=== PATIENT | female | born 1975 | race Caucasian/White ===

== ENCOUNTER 2018-08-01 22:12 | Emergency (ER) | payer BC, OTHER ==
[2018-08-01] MEDS ORDERED: IBUPROFEN 600 MG TAB PO STA (22:42)
[2018-08-01] MEDS ORDERED: SODIUM CHLORIDE 0.9% 1,000 ML IV STA ×2 (22:42)
[2018-08-01] MEDS ORDERED: SODIUM CHLORIDE 0.9% 500 ML 500 ML IV STA (22:42)
[2018-08-01] MEDS ORDERED: ACETAMINOPHEN TAB 500 MG TAB PO STA (22:42)
[2018-08-01 23:16] LABS: Basophils % (A) 0 %; Eosinophils # (A) 0.1 k/uL (0-0.7); Eosinophils % (A) 1 %; HCT 37.8 % (34.0-46.0); HGB 12.2 gm/dL (11.4-16.0); Lymphocytes # (A) 1.3 k/uL (1.0-4.8); Lymphocytes % (A) 10 %; MCH 29.5 pg (25.0-35.0); MCHC 32.2 g/dL (31.0-37.0); MCV 91.6 fL (80.0-100.0); Mean Platelet Volume 6.7; Monocytes # (A) 0.6 k/uL (0-1.0); Monocytes % (A) 4 %; Neutrophils # (A) 10.9 k/uL (1.3-7.7); Neutrophils % (A) 83 %; Platelet Count 320 k/uL (150-450); RBC 4.12 m/uL (3.80-5.40); RDW 12.8 % (11.5-15.5); WBC 13.2 k/uL (3.8-10.6)
[2018-08-01 23:23] LABS: Appearance,Urine Cloudy (Clear); Bacteria,Urine Many /hpf; Bilirubin,Urine Negative (Negative); Blood,Urine Moderate (Negative); Color,Urine Yellow; Glucose,Urine (UA) Negative (Negative); Ketones,Urine Negative (Negative); Leukocyte Esterase,Urine Large (Negative); Mucus,Urine Rare /hpf; Nitrite,Urine Positive (Negative); Protein,Urine 1+ (Negative); RBC,Urine 18 /hpf (0-5); Specific Gravity,Urine 1.013 (1.001-1.035); Squamous Epithelial Cell,Urine 1 /hpf (0-4); Urobilinogen,Urine <2.0 mg/dL (<2.0); WBC,Urine >182 /hpf (0-5)
[2018-08-01 23:41] LABS: ALT 37 U/L (9-52); AST 30 U/L (14-36); African American GFR (CKD) >90 (>60 ml/min/1.73 sqM); Albumin 3.4 g/dL (3.5-5.0); Alkaline Phosphatase 143 U/L (38-126); Anion Gap 10 mmol/L; Blood Urea Nitrogen 11 mg/dL (7-17); Calcium 8.8 mg/dL (8.4-10.2); Carbon Dioxide 23 mmol/L (22-30); Chloride 104 mmol/L (98-107); Glucose 106 mg/dL (74-99); Magnesium 1.9 mg/dL (1.6-2.3); Phosphorus 3.7 mg/dL (2.5-4.5); Potassium 3.8 mmol/L (3.5-5.1); Sodium 137 mmol/L (137-145); Total Bilirubin 0.5 mg/dL (0.2-1.3); Total Protein 6.2 g/dL (6.3-8.2)
--- NOTE | 2018-08-02 00:48 | US ---
EXAM: US Abdomen Limited, Right Upper Quadrant CLINICAL HISTORY: ITS.REASON US Reason: Pain TECHNIQUE: Real-time ultrasound of the right upper quadrant with image documentation. COMPARISON: None FINDINGS: Liver: Measures 19.4 cm, enlarged. Normal echotexture and contour. No focal lesion. Portal vein: Patent with normal direction of flow. Gallbladder: Normal. No wall thickening or pericholecystic fluid. No stone or sludge. Negative sonographic Russell's sign. Biliary tree: No abnormal dilatation. Common bile duct measures 4.8 mm. Pancreas: Visualized portions are unremarkable. Right kidney: Measures 12.8 cm in length. No hydronephrosis or stone. No mass. Peritoneal space: Normal. No free fluid. IMPRESSION: 1. Hepatomegaly. 2. No acute abnormality.
--- NOTE | 2018-08-02 00:50 | XR ---
EXAM: XR Chest, 2 Views CLINICAL HISTORY: ITS.REASON XR Reason: fever TECHNIQUE: Frontal and lateral views of the chest. COMPARISON: None FINDINGS: Hardware: None. Lungs/pleura: Mild left basilar atelectasis. No focal consolidation. No pleural effusion or pneumothorax. Heart/mediastinum: Normal. No cardiomegaly. Soft tissues: Unremarkable. Bones: No acute fracture. Upper abdomen: Normal. IMPRESSION: No acute disease identified.
[2018-08-02] MEDS ORDERED: SODIUM CHLORIDE 0.9% 1,000 ML IV STA (00:51)
[2018-08-02] MEDS ORDERED: NITROFURANTOIN MONOHYD/M-CRYST 100 MG CAP PO STA (00:51)
--- NOTE | 2018-08-02 00:51 | ED ---
Fever HPI - General Chief Complaint: Fever Stated Complaint: Fever Neck Pain Time Seen by Provider: 08/01/18 22:40 Source: patient, RN notes reviewed, old records reviewed Mode of arrival: ambulatory Limitations: no limitations - History of Present Illness Initial Comments: This is a 42-year-old female the ER for evaluation. She presents today for eval uation regards to fever. States she is right upper quadrant pain right flank pain and fever that started yesterday, otherwise not generalized not feeling well. Please she may have the flu, denies body aches. I'll nausea no vomiting nausea worse after she eats. Denies any bowel or bladder issues. No vomiting. No travel history or sick contacts. MD Complaint: fever -: days(s) (2) Temperature Source: oral Associated Symptoms: chills, myalgias, nausea Treatments Prior to Arrival: none - Related Data Previous Rx's Medication Instructions Recorded Nitrofurantoin Monohyd/M-Cryst 100 mg PO Q12HR #28 cap 08/02/18 [Macrobid] Allergies Allergy/AdvReac Type Severity Reaction Status Date / Time No Known Allergies Allergy Verified 08/01/18 23:11 Review of Systems ROS Statement: Those systems with pertinent positive or pertinent negative responses have been documented in the HPI. ROS Other: All systems not noted in ROS Statement are negative. Past Medical History Past Medical History: No Reported History History of Any Multi-Drug Resistant Organisms: None Reported Past Surgical History: Uterine Ablation Additional Past Surgical History / Comment(s): facial tumor removed at age 12 Past Psychological History: No Psychological Hx Reported Smoking Status: Current every day smoker Past Alcohol Use History: Rare Past Drug Use History: None Reported General Exam Limitations: no limitations General appearance: alert, in no apparent distress Head exam: Present: atraumatic, normocephalic, normal inspection Eye exam: Present: normal appearance, PERRL, EOMI. Absent: scleral icterus, conjunctival injection, periorbital swelling ENT exam: Present: normal exam, mucous membranes moist Neck exam: Present: normal inspection. Absent: tenderness, meningismus, lymphadenopathy Respiratory exam: Present: normal lung sounds bilaterally. Absent: respiratory distress, wheezes, rales, rhonchi, stridor Cardiovascular Exam: Present: regular rate, normal rhythm, normal heart sounds. Absent: systolic murmur, diastolic murmur, rubs, gallop, clicks GI/Abdominal exam: Present: soft, tenderness (Right upper quadrant), normal bowel sounds. Absent: distended, guarding, rebound, rigid Extremities exam: Present: normal inspection, full ROM, normal capillary refill. Absent: tenderness, pedal edema, joint swelling, calf tenderness Back exam: Present: normal inspection Neurological exam: Present: alert, oriented X3, CN II-XII intact Psychiatric exam: Present: normal affect, normal mood Skin exam: Present: warm, dry, intact, normal color. Absent: rash Course Vital Signs 08/01/18 08/02/18 08/02/18 22:28 00:28 01:11 Temperature 98.9 F 100.3 F H Pulse Rate 100 99 94 Respiratory 20 18 16 Rate Blood Pressure 137/88 113/76 107/75 O2 Sat by Pulse 99 97 96 Oximetry 08/02/18 01:40 Temperature 98.3 F Pulse Rate 89 Respiratory 18 Rate Blood Pressure 113/81 O2 Sat by Pulse 95 Oximetry - Reevaluation(s) Reevaluation #1: Medical record is reviewed Patient's fevers well-controlled symptoms are improved Medical Decision Making - Medical Decision Making 0.1 female the ER for evaluation of fever. Patient does have urinary tract infection, IV antibiotics. Patient given IV fluid can be discharged home - Lab Data Result diagrams: 08/01/18 22:50 08/01/18 22:50 Lab Results 08/01/18 08/01/18 08/01/18 Range/Units 22:50 22:50 22:50 WBC 13.2 H (3.8-10.6) k/uL RBC 4.12 (3.80-5.40) m/uL Hgb 12.2 (11.4-16.0) gm/dL Hct 37.8 (34.0-46.0) % MCV 91.6 (80.0-100.0) fL MCH 29.5 (25.0-35.0) pg MCHC 32.2 (31.0-37.0) g/dL RDW 12.8 (11.5-15.5) % Plt Count 320 (150-450) k/uL Neutrophils % 83 % Lymphocytes % 10 % Monocytes % 4 % Eosinophils % 1 % Basophils % 0 % Neutrophils # 10.9 H (1.3-7.7) k/uL Lymphocytes # 1.3 (1.0-4.8) k/uL Monocytes # 0.6 (0-1.0) k/uL Eosinophils # 0.1 (0-0.7) k/uL Basophils # 0.0 (0-0.2) k/uL Sodium 137 (137-145) mmol/L Potassium 3.8 (3.5-5.1) mmol/L Chloride 104 (98-107) mmol/L Carbon Dioxide 23 (22-30) mmol/L Anion Gap 10 mmol/L BUN 11 (7-17) mg/dL Creatinine 0.73 (0.52-1.04) mg/dL Est GFR (CKD-EPI)AfAm >90 (>60 ml/min/1.73 sqM) Est GFR (CKD-EPI)NonAf >90 (>60 ml/min/1.73 sqM) Glucose 106 H (74-99) mg/dL Plasma Lactic Acid Gera 1.0 (0.7-2.0) mmol/L Calcium 8.8 (8.4-10.2) mg/dL Phosphorus 3.7 (2.5-4.5) mg/dL Magnesium 1.9 (1.6-2.3) mg/dL Total Bilirubin 0.5 (0.2-1.3) mg/dL AST 30 (14-36) U/L ALT 37 (9-52) U/L Alkaline Phosphatase 143 H (38-126) U/L Total Protein 6.2 L (6.3-8.2) g/dL Albumin 3.4 L (3.5-5.0) g/dL Urine Color Urine Appearance (Clear) Urine pH (5.0-8.0) Ur Specific [place] (1.001-1.035) Urine Protein (Negative) Urine Glucose (UA) (Negative) Urine Ketones (Negative) Urine Blood (Negative) Urine Nitrite (Negative) Urine Bilirubin (Negative) Urine Urobilinogen (<2.0) mg/dL Ur Leukocyte Esterase (Negative) Urine RBC (0-5) /hpf Urine WBC (0-5) /hpf Urine WBC Clumps (None) /hpf Ur Squamous Epith Cells (0-4) /hpf Urine Bacteria (None) /hpf Urine Mucus (None) /hpf Influenza Type A RNA (Not Detectd) Influenza Type B (PCR) (Not Detectd) 08/01/18 08/01/18 Range/Units 22:58 23:15 WBC (3.8-10.6) k/uL RBC (3.80-5.40) m/uL Hgb (11.4-16.0) gm/dL Hct (34.0-46.0) % MCV (80.0-100.0) fL MCH (25.0-35.0) pg MCHC (31.0-37.0) g/dL RDW (11.5-15.5) % Plt Count (150-450) k/uL Neutrophils % % Lymphocytes % % Monocytes % % Eosinophils % % Basophils % % Neutrophils # (1.3-7.7) k/uL Lymphocytes # (1.0-4.8) k/uL Monocytes # (0-1.0) k/uL Eosinophils # (0-0.7) k/uL Basophils # (0-0.2) k/uL Sodium (137-145) mmol/L Potassium (3.5-5.1) mmol/L Chloride (98-107) mmol/L Carbon Dioxide (22-30) mmol/L Anion Gap mmol/L BUN (7-17) mg/dL Creatinine (0.52-1.04) mg/dL Est GFR (CKD-EPI)AfAm (>60 ml/min/1.73 sqM) Est GFR (CKD-EPI)NonAf (>60 ml/min/1.73 sqM) Glucose (74-99) mg/dL Plasma Lactic Acid Gera (0.7-2.0) mmol/L Calcium (8.4-10.2) mg/dL Phosphorus (2.5-4.5) mg/dL Magnesium (1.6-2.3) mg/dL Total Bilirubin (0.2-1.3) mg/dL AST (14-36) U/L ALT (9-52) U/L Alkaline Phosphatase (38-126) U/L Total Protein (6.3-8.2) g/dL Albumin (3.5-5.0) g/dL Urine Color Yellow Urine Appearance Cloudy H (Clear) Urine pH 6.0 (5.0-8.0) Ur Specific [place] 1.013 (1.001-1.035) Urine Protein 1+ H (Negative) Urine Glucose (UA) Negative (Negative) Urine Ketones Negative (Negative) Urine Blood Moderate H (Negative) Urine Nitrite Positive H (Negative) Urine Bilirubin Negative (Negative) Urine Urobilinogen <2.0 (<2.0) mg/dL Ur Leukocyte Esterase Large H (Negative) Urine RBC 18 H (0-5) /hpf Urine WBC >182 H (0-5) /hpf Urine WBC Clumps Occasional H (None) /hpf Ur Squamous Epith Cells 1 (0-4) /hpf Urine Bacteria Many H (None) /hpf Urine Mucus Rare H (None) /hpf Influenza Type A RNA Not Detected (Not Detectd) Influenza Type B (PCR) Not Detected (Not Detectd) - Radiology Data Radiology results: report reviewed (Chest x-rays negative, ultrasound gallbladder negative for acute disease), image reviewed Disposition Clinical Impression: UTI (urinary tract infection), Fever, Pyelonephritis Disposition: HOME SELF-CARE Condition: Good Instructions (If sedation given, give patient instructions): Urinary Tract Infection in Women (ED), Fever in Adults (ED), Kidney Infection (ED) Prescriptions: Nitrofurantoin Monohyd/M-Cryst [Macrobid] 100 mg PO Q12HR #28 cap Is patient prescribed a controlled substance at d/c from ED?: No Referrals: Za Barnes MD [Primary Care Provider] - 1-2 days
[2018-08-02 01:43] VITALS: BP 113/81; PULSE 89; RESP 18; TEMP 98.3
== END 2018-08-02 01:45 | disposition home or self-care (01) ==
LOC: EC 22:12
DX: N39.0 Urinary tract infection, site not specified (principal); N12 Tubulo-interstitial nephritis, not specified as acute or chronic; M79.10 Myalgia, unspecified site; F17.200 Nicotine dependence, unspecified, uncomplicated; Z53.8 Procedure and treatment not carried out for other reasons
CPT/HCPCS: 36415; 80053; 83605; 83735; 84100; 85025; 81001; 87040; 87086; 87502; 71046; 76705; 99284; 96365; 96361 ×2; J0696; 87077; 87186

== ENCOUNTER 2019-11-15 11:46 | Inpatient (IN) | payer OTHER ==
[2019-11-15] MEDS ORDERED: SODIUM CHLORIDE 0.9% 1,000 ML IV STA ×3 (12:03→13:48)
[2019-11-15] MEDS ORDERED: ONDANSETRON 4 MG/2 ML VIAL IVP STA (12:03)
[2019-11-15] MEDS ORDERED: SODIUM CHLORIDE 0.9% 500 ML 500 ML IV STA ×2 (12:03→13:48)
[2019-11-15] MEDS ORDERED: KETOROLAC 15 MG/ML 1 ML VIAL IVP STA (12:04)
--- NOTE | 2019-11-15 12:05 | ED ---
Recheck HPI - General Chief Complaint: Urogenital Stated Complaint: Kidney infection Time Seen by Provider: 11/15/19 12:03 Source: patient, RN notes reviewed, old records reviewed Mode of arrival: ambulatory Limitations: no limitations - History of Present Illness Initial Comments: This is a 44-year-old female DF for evaluation patient is persisting fevers and dysuria from urinary tract infection. Patient also having bilateral back pain a little worse on the left. Again persistent fevers lasted of 130 no blood in the urine. No nausea vomiting. No recent travel history or sick contacts. Patient is tested for Kovic or coronavirus on a weekly basis. No diarrhea no cough or congestion sore throat MD Complaint: abnormal lab (Known urinary tract infection) -: days(s) Returns Today for: needs IV antibiotics, persistent/worsening pain related to initial visit, other (Persistently elevated fever) Symptoms Since Prior Visit: worsening pain, fever Associated Symptoms: fever, chills, nausea, abdominal pain (Bilateral flank pain) - Related Data Home Medications Medication Instructions Recorded Confirmed Acetaminophen Tab [Tylenol Tab] 1,000 mg PO Q6HR PRN 11/11/19 11/11/19 Ibuprofen [Motrin Ib] 400 mg PO Q6H PRN 11/11/19 11/11/19 Previous Rx's Medication Instructions Recorded Cephalexin [Keflex] 500 mg PO Q6HR 14 Days #56 cap 11/11/19 Ondansetron [Zofran ODT] 4 mg PO Q8HR PRN #15 tab 11/11/19 Allergies Allergy/AdvReac Type Severity Reaction Status Date / Time No Known Allergies Allergy Verified 11/15/19 11:57 Review of Systems ROS Statement: Those systems with pertinent positive or pertinent negative responses have been documented in the HPI. ROS Other: All systems not noted in ROS Statement are negative. Past Medical History Past Medical History: No Reported History History of Any Multi-Drug Resistant Organisms: None Reported Past Surgical History: Uterine Ablation Additional Past Surgical History / Comment(s): facial tumor removed at age 12 Past Psychological History: No Psychological Hx Reported Smoking Status: Never smoker Past Alcohol Use History: Rare Past Drug Use History: None Reported General Exam Limitations: no limitations General appearance: alert, in no apparent distress Head exam: Present: atraumatic, normocephalic, normal inspection Eye exam: Present: normal appearance, PERRL, EOMI. Absent: scleral icterus, conjunctival injection, periorbital swelling ENT exam: Present: normal exam, mucous membranes moist Neck exam: Present: normal inspection. Absent: tenderness, meningismus, lymphadenopathy Respiratory exam: Present: normal lung sounds bilaterally. Absent: respiratory distress, wheezes, rales, rhonchi, stridor Cardiovascular Exam: Present: regular rate, normal rhythm, normal heart sounds. Absent: systolic murmur, diastolic murmur, rubs, gallop, clicks GI/Abdominal exam: Present: soft, normal bowel sounds. Absent: distended, ten derness, guarding, rebound, rigid Extremities exam: Present: normal inspection, full ROM, normal capillary refill. Absent: tenderness, pedal edema, joint swelling, calf tenderness Back exam: Present: normal inspection Neurological exam: Present: alert, oriented X3, CN II-XII intact Psychiatric exam: Present: normal affect, normal mood Skin exam: Present: warm, dry, intact, normal color. Absent: rash Course Vital Signs 11/15/19 11:54 Temperature 98.1 F Pulse Rate 76 Respiratory 20 Rate Blood Pressure 145/104 O2 Sat by Pulse 100 Oximetry - Reevaluation(s) Reevaluation #1: 11/15/19 12:21 Medical records reviewed 11/15/19 12:21 Prior ER visit and microbiology report reviewed Reevaluation #2: 11/15/19 13:49 Patient still with nausea, no active vomiting Reevaluation #3: 11/15/19 13:49 Spoke with patient regarding results, questions answered - Consultations Consultation #1: Spoke with [facility] agrees to admit this patient Medical Decision Making - Medical Decision Making 44 female DF for evaluation persistent dysuria and fevers despite antibiotic treatment for pyelonephritis. Patient will be admitted for antibiotic treatment IV for pyelonephritis - Lab Data Result diagrams: 11/15/19 12:23 11/15/19 12:23 Lab Results 11/15/19 11/15/19 11/15/19 Range/Units 12:23 12:23 12:23 WBC 10.8 H (3.8-10.6) k/uL RBC 4.29 (3.80-5.40) m/uL Hgb 12.9 (11.4-16.0) gm/dL Hct 39.1 (34.0-46.0) % MCV 91.1 (80.0-100.0) fL MCH 29.9 (25.0-35.0) pg MCHC 32.9 (31.0-37.0) g/dL RDW 12.8 (11.5-15.5) % Plt Count 445 (150-450) k/uL Neutrophils % 62 % Lymphocytes % 30 % Monocytes % 6 % Eosinophils % 1 % Basophils % 0 % Neutrophils # 6.6 (1.3-7.7) k/uL Lymphocytes # 3.2 (1.0-4.8) k/uL Monocytes # 0.6 (0-1.0) k/uL Eosinophils # 0.1 (0-0.7) k/uL Basophils # 0.0 (0-0.2) k/uL Sodium 138 (137-145) mmol/L Potassium 4.4 (3.5-5.1) mmol/L Chloride 102 (98-107) mmol/L Carbon Dioxide 29 (22-30) mmol/L Anion Gap 7 mmol/L BUN 18 H (7-17) mg/dL Creatinine 0.82 (0.52-1.04) mg/dL Est GFR (CKD-EPI)AfAm >90 (>60 ml/min/1.73 sqM) Est GFR (CKD-EPI)NonAf 88 (>60 ml/min/1.73 sqM) Glucose 96 (74-99) mg/dL Calcium 8.7 (8.4-10.2) mg/dL Phosphorus 4.2 (2.5-4.5) mg/dL Magnesium 1.8 (1.6-2.3) mg/dL Total Bilirubin 0.3 (0.2-1.3) mg/dL AST 27 (14-36) U/L ALT 27 (4-34) U/L Alkaline Phosphatase 154 H (38-126) U/L Creatine Kinase 27 L (30-135) U/L Total Protein 6.1 L (6.3-8.2) g/dL Albumin 3.2 L (3.5-5.0) g/dL Urine Color Yellow Urine Appearance Cloudy H (Clear) Urine pH 5.5 (5.0-8.0) Ur Specific [place] 1.020 (1.001-1.035) Urine Protein Trace H (Negative) Urine Glucose (UA) Negative (Negative) Urine Ketones Negative (Negative) Urine Blood Small H (Negative) Urine Nitrite Negative (Negative) Urine Bilirubin Negative (Negative) Urine Urobilinogen <2.0 (<2.0) mg/dL Ur Leukocyte Esterase Moderate H (Negative) Urine RBC 4 (0-5) /hpf Urine WBC 12 H (0-5) /hpf Ur Squamous Epith Cells 9 H (0-4) /hpf Urine Bacteria Moderate H (None) /hpf Hyaline Casts 1 (0-2) /lpf Urine Mucus Rare H (None) /hpf - Radiology Data Radiology results: report reviewed (CT head and pelvis negative for kidney stone positive pyelonephritis), image reviewed Disposition Clinical Impression: Urinary tract infection, Pyelonephritis, Failure of outpatient treatment Disposition: ADMITTED IP TO THIS [facility] Condition: Good Is patient prescribed a controlled substance at d/c from ED?: No Referrals: Za Barnes MD [Primary Care Provider] - 1-2 days
[2019-11-15 12:51] LABS: ALT 27 U/L (4-34); AST 27 U/L (14-36); African American GFR (CKD) >90 (>60 ml/min/1.73 sqM); Albumin 3.2 g/dL (3.5-5.0); Alkaline Phosphatase 154 U/L (38-126); Anion Gap 7 mmol/L; Blood Urea Nitrogen 18 mg/dL (7-17); Calcium 8.7 mg/dL (8.4-10.2); Carbon Dioxide 29 mmol/L (22-30); Chloride 102 mmol/L (98-107); Creatine Kinase 27 U/L (30-135); Glucose 96 mg/dL (74-99); Magnesium 1.8 mg/dL (1.6-2.3); Non-African American GFR(CKD) 88 (>60 ml/min/1.73 sqM); Phosphorus 4.2 mg/dL (2.5-4.5); Potassium 4.4 mmol/L (3.5-5.1); Sodium 138 mmol/L (137-145); Total Bilirubin 0.3 mg/dL (0.2-1.3); Total Protein 6.1 g/dL (6.3-8.2)
[2019-11-15 12:52] LABS: Appearance,Urine Cloudy (Clear); Bacteria,Urine Moderate /hpf; Bilirubin,Urine Negative (Negative); Blood,Urine Small (Negative); Color,Urine Yellow; Glucose,Urine (UA) Negative (Negative); Hyaline Casts,Urine 1 /lpf (0-2); Ketones,Urine Negative (Negative); Leukocyte Esterase,Urine Moderate (Negative); Mucus,Urine Rare /hpf; Nitrite,Urine Negative (Negative); PH, Urine 5.5 (5.0-8.0); Protein,Urine Trace (Negative); RBC,Urine 4 /hpf (0-5); Squamous Epithelial Cell,Urine 9 /hpf (0-4); Urobilinogen,Urine <2.0 mg/dL (<2.0); WBC,Urine 12 /hpf (0-5)
[2019-11-15 12:57] LABS: Basophils % (A) 0 %; Eosinophils # (A) 0.1 k/uL (0-0.7); Eosinophils % (A) 1 %; HCT 39.1 % (34.0-46.0); HGB 12.9 gm/dL (11.4-16.0); Lymphocytes # (A) 3.2 k/uL (1.0-4.8); Lymphocytes % (A) 30 %; MCH 29.9 pg (25.0-35.0); MCHC 32.9 g/dL (31.0-37.0); MCV 91.1 fL (80.0-100.0); Mean Platelet Volume 6.5; Monocytes # (A) 0.6 k/uL (0-1.0); Monocytes % (A) 6 %; Neutrophils # (A) 6.6 k/uL (1.3-7.7); Neutrophils % (A) 62 %; Platelet Count 445 k/uL (150-450); RBC 4.29 m/uL (3.80-5.40); RDW 12.8 % (11.5-15.5); WBC 10.8 k/uL (3.8-10.6)
--- NOTE | 2019-11-15 13:27 | CT ---
EXAMINATION TYPE: CT abdomen pelvis wo con DATE OF EXAM: 11/15/2019 COMPARISON: None INDICATION: Abdominal pain, recently diagnosed with UTI DLP: 974.9 mGycm, Automated exposure control for dose reduction was used. CONTRAST: 0 mL of Isovue 300. Study performed without Oral Contrast TECHNIQUE: Axial images were obtained from above the diaphragm to the pubic rami in the axial plane a t 5 mm thick sections. Reconstructed images are reviewed on the computer in the coronal plane. FINDINGS: Limited CT sections are obtained the lung bases. The lung bases are clear. CT ABDOMEN: Liver: Normal Spleen: Normal Pancreas: Normal Adrenal glands: The adrenal glands are normal. Gallbladder: Normal Kidneys: No masses are evident. No hydronephrosis is present. There is a 2.5 cm hypodense area with in the mid left renal pelvis. Peripelvic cysts should be considered. Hydronephrosis is not felt to be present. The right kidney appears enlarged diffusely. There are multiple bilateral hypodensities wit hin the cortex bilaterally suggestive for renal cysts. There may be a 0.3 cm calcification at the in ferior pole right kidney on the coronal plane images. Some mild right hydroureter may be present. No obstructing renal stone however is identified by this exam. There is difficulty in visualization of t he ureter within the pelvis. Aorta: Normal Inferior vena cava: Normal. CT PELVIS: Loops of bowel within the abdomen and pelvis are normal. There is without oral contrast limiting bowel evaluation. Appendix: Normal as visualized. Urinary bladder: Normal. Genitourinary structures: Uterus is normal. Surgical clips are within the pelvis. A 3.7 cm cyst is in the left ovary. Osseous structures: No suspicious lytic or sclerotic lesions. IMPRESSIONS: 1. Left ovarian cyst. This could be followed with ultrasound. 2. Fullness through the right kidney with some periureteral inflammatory change. No obstruction is id entified. Correlate for pyelonephritis.
[2019-11-15] MEDS: ACETAMINOPHEN TAB 500 MG TAB PO PRN (18:42)
[2019-11-15] MEDS ORDERED: ALPRAZolam 0.25 MG TAB PO PRN (20:09)
[2019-11-15] MEDS: NICOTINE 14MG/24HR PATCH TRANSDERM SCH (23:07)
[2019-11-15] MEDS: HEPARIN SODIUM,PORCINE 5,000 UNIT/ML 1 ML VIAL SQ SCH (23:09)
[2019-11-16] MEDS: HYDROmorphone 0.5 MG/0.5 ML SYRINGE IVP PRN ×2 (01:01→08:28)
--- NOTE | 2019-11-16 01:15 | HP ---
HISTORY AND PHYSICAL CHIEF COMPLAINT: Fever, weakness and as well as abdominal pain, loin pain on the left side. HISTORY OF PRESENT ILLNESS: This 44-year-old woman with a past medical history of no significant medical issues except uterine ablation, facial tumor removed being followed Dr. Barnes in the outpatient setting, not feeling well recently. The patient had persistent fevers and dysuria for UTI. The patient was given antibiotics in the form of ciprofloxacin. Today, the patient had headaches and abdominal pain, left loin pain and feeling weak and the patient came to [facility] and was admitted for further evaluation and treatment. CT scan showed possibly pyelonephritis fullness on the right kidney and some periurethral inflammatory changes and left ovarian cyst was also noted. Patient admitted for further evaluation and treatment. PAST MEDICAL HISTORY: Uterine ablation, facial tumor removal. ALLERGIES: None. MEDICATIONS: Cipro, recently finished. FAMILY HISTORY: No history of heart disease or strokes in the family. SOCIAL HISTORY: Patient works in [employer] as an aide. Continues smoking at this time. REVIEW OF SYSTEMS: ENT: No diminished hearing or diminished vision. CARDIOVASCULAR SYSTEM: No angina. RESPIRATORY SYSTEM: No cough or hemoptysis. GI: As mentioned earlier. : As mentioned earlier. NERVOUS SYSTEM: No numbness or weakness, ALLERGY/IMMUNOLOGY: No asthma. MUSCULOSKELETAL: As mentioned earlier. HEMATOLOGY: No history of anemia. ENDOCRINE: No history of diabetes. CONSTITUTIONAL: As mentioned earlier. DERMATOLOGY: Negative. RHEUMATOLOGY: Negative. PSYCHIATRY: Negative. PHYSICAL EXAMINATION: The patient is alert and oriented x3. Pulse 74, blood pressure 132/86, respiration 12, temperature 98.2, pulse ox 99% on room air. HEENT: Conjunctivae normal. NECK: No jugular venous distention. CARDIOVASCULAR: S1, S2 muffled. RESPIRATORY: Breath sounds diminished at the bases. A few scattered rhonchi and crackles. ABDOMEN: Soft, otherwise some diffuse fullness and diffuse distention present. Some tenderness in the left adrenal angle also present. LEGS: No edema, no swelling. NERVOUS SYSTEM: Higher function as mentioned. Moves all 4 limbs. No focal motor or sensory deficits. LYMPHATICS: No lymphadenopathy of the neck, axillae or groin. SKIN: No ulcer, rash or bleeding. JOINTS: No active deforming arthropathy. LABS: WBC 10.8, hemoglobin 12.9, alkaline phosphatase 154 and creatinine kinase 27. UA noted. ASSESSMENT: 1. Acute urinary tract infection with possible pyelonephritis and sepsis, present on admission with failure of outpatient treatment. 2. Increased WBC. 3. History of uterine ablation. 4. History of facial tumor removal. 5. Obesity with body mass index of 33.3. RECOMMENDATIONS AND DISCUSSION: This 44-year-old woman who presented with multiple complex medical issues, we will monitor the patient closely. Recommended IV antibiotics, follow the cultures. Symptomatic treatment and guarded prognosis because of multiple complex medical issues. Further recommendations to follow. See orders for details. DVT prophylaxis. A copy of dictation forwarded to Dr. Barnes, who is the primary physician. MMODL / IJN: [id number] /
[2019-11-16 07:55] LABS: African American GFR (CKD) >90 (>60 ml/min/1.73 sqM); Anion Gap 5 mmol/L; Blood Urea Nitrogen 16 mg/dL (7-17); Calcium 8.5 mg/dL (8.4-10.2); Carbon Dioxide 24 mmol/L (22-30); Chloride 104 mmol/L (98-107); Glucose 114 mg/dL (74-99); Non-African American GFR(CKD) >90 (>60 ml/min/1.73 sqM); Potassium 4.6 mmol/L (3.5-5.1); Sodium 133 mmol/L (137-145)
[2019-11-16] MEDS: PANTOPRAZOLE 40 MG TABLET PO SCH (08:11)
[2019-11-16] MEDS ORDERED: ONDANSETRON 4 MG/2 ML VIAL ONE (08:14)
[2019-11-16 08:16] LABS: Basophils % (A) 0 %; Eosinophils # (A) 0.1 k/uL (0-0.7); Eosinophils % (A) 1 %; HCT 37.6 % (34.0-46.0); HGB 12.4 gm/dL (11.4-16.0); Lymphocytes # (A) 2.5 k/uL (1.0-4.8); Lymphocytes % (A) 19 %; MCV 90.9 fL (80.0-100.0); Mean Platelet Volume 6.4; Monocytes # (A) 0.6 k/uL (0-1.0); Monocytes % (A) 5 %; Neutrophils # (A) 9.7 k/uL (1.3-7.7); Neutrophils % (A) 74 %; Platelet Count 447 k/uL (150-450); RBC 4.14 m/uL (3.80-5.40); RDW 12.5 % (11.5-15.5); WBC 13.2 k/uL (3.8-10.6)
[2019-11-16] MEDS: NICOTINE 14MG/24HR PATCH TRANSDERM SCH (08:18)
[2019-11-16] MEDS: HEPARIN SODIUM,PORCINE 5,000 UNIT/ML 1 ML VIAL SQ SCH ×2 (08:19→21:46)
[2019-11-16] MEDS ORDERED: ONDANSETRON 4 MG/2 ML VIAL IVP STA (08:19)
[2019-11-16] MEDS: ACETAMINOPHEN TAB 500 MG TAB PO PRN (12:17)
[2019-11-16] MEDS ORDERED: ONDANSETRON 4 MG/2 ML VIAL IVP PRN (12:40)
--- NOTE | 2019-11-16 17:52 | PN ---
PROGRESS NOTE DATE OF SERVICE: 11/16/2019 This 44-year-old woman who was admitted with fever and weakness as well as abdominal pain and loin pain had possibly pyelonephritis with early sepsis. The patient is on IV antibiotics and IV fluids. The patient is being closely monitored. Cultures are pending at this time. No chest pain. No palpitations. No fever. PHYSICAL EXAMINATION: Alert and oriented x3. Pulse 98, blood pressure 135/93, respiration 18, temperature 97.7, pulse ox 98% on room air. HEENT: Conjunctivae normal. NECK: No jugular venous distention. CARDIOVASCULAR SYSTEM: S1, S2 muffled. RESPIRATORY SYSTEM: Breath sounds diminished at the bases. A few scattered rhonchi and crackles. ABDOMEN: Soft. Obese. Some mild diffuse tenderness present in the renal angles. LABS: WBC 13.2. Sodium is 133. Other labs are noted. ASSESSMENT: 1. Acute urinary tract infection with possible pyelonephritis and sepsis, present on admission, with failure of outpatient treatment. 2. Increased white count. 3. History of uterine ablation. 4. History of facial tumor removal. 5. Obesity with body mass index of 33.3. 6. Increased random blood sugar. 7. Hyponatremia, mild. RECOMMENDATIONS AND DISCUSSION: In this 42-year-old woman who presented with multiple complex medical issues, at this time we will monitor the patient closely, continue the current medications, continue symptomatic treatment. Otherwise, IV antibiotics. Follow the cultures. Repeat labs in the morning. I would also recommend infectious disease evaluation by Dr. Olivier. Guarded prognosis. Further recommendations to follow. MMODL / IJN: [id number] /
[2019-11-16] MEDS: HYDROcodone/APAP 5-325MG 1 EACH TAB PO PRN (18:17)
--- NOTE | 2019-11-16 21:53 | P.CONS ---
History of Present Illness - Reason for Consult Consult date: 11/16/19 Pyelonephritis Requesting physician: Earl Muniz - Chief Complaint Right flank pain and fever x few days - History of Present Illness Patient is a 44 year female started having symptoms of right flank pain more fidelity and sharp intensity 6 out of 10 no radiation associated nausea but no vomiting no chest pain shortness of breath or cough, increasing the patient was evaluated at [facility] ER on 11/11/2019 patient did have a UA and cultures she was diagnosed with a pyelonephritis associated to cirrhosis and sensitive discharged home on oral Keflex patient was evaluated in the outpatient setting by the PCP and antibiotic was switched over to Cipro however the patient mentioned she did have a pain to the right flank area and concern that antibiotic were not working and she presented back to the hospital the patient also was running a fever of 103F at home, with the symptoms the patient was evaluated by the ER physician, on arrival to the ER the patient has been afebrile she did have a mildly elevated white count positive UA, patient did have a CT of abdominal pelvis completed evidence of left ovarian cyst. The right kidney with some periureteral inflammation change correlate for pyelonephritis patient was started on Rocephin 1 g every 12 hours infectious disease was consulted for further management of antibiotic therapy Review of Systems Positive point has been mentioned in the HPI rest of the systems are negative Past Medical History Past Medical History: No Reported History History of Any Multi-Drug Resistant Organisms: None Reported Past Surgical History: Uterine Ablation Additional Past Surgical History / Comment(s): facial tumor removed at age 12 Past Anesthesia/Blood Transfusion Reactions: No Reported Reaction Past Psychological History: No Psychological Hx Reported Smoking Status: Never smoker Past Alcohol Use History: Rare Past Drug Use History: None Reported Medications and Allergies Home Medications Medication Instructions Recorded Confirmed Type No Known Home Medications 11/15/19 11/15/19 History Allergies Allergy/AdvReac Type Severity Reaction Status Date / Time No Known Allergies Allergy Verified 11/15/19 16:36 Physical Exam Vitals: Vital Signs Temp Pulse Pulse Resp BP Pulse Ox 11/16/19 15:00 97.7 F 82 98 18 135/93 98 11/16/19 09:00 98.1 F 92 17 144/97 96 11/16/19 02:33 98.8 F 90 14 137/81 97 11/15/19 21:58 98.2 F 74 16 129/81 97 Intake and Output 11/16/19 11/16/19 11/16/19 06:59 14:59 22:59 Intake Total 444 Balance 444 Intake: Oral 444 Other: Voiding Method Toilet # Voids 2 GENERAL DESCRIPTION: Middle-aged female lying in bed, no distress. No tachypnea or accessory muscle of respiration use. HEENT: Shows Pallor , no scleral icterus. Oral mucous membrane is dry. No pharyngeal erythema or thrush NECK: Trachea central, no thyromegaly. LUNGS: Unlabored breathing. Clear to auscultation anteriorly. No wheeze or crackle. HEART: S1, S2, regular rate and rhythm. No loud murmur ABDOMEN: Soft, mild right flank tenderness , guarding or rigidity, no organomegaly EXTREMITIES: No edema of feet. SKIN: No rash, no masses palpable. NEUROLOGICAL: The patient is awake, alert, oriented x3, mood and affect normal. Results CBC & Chem 7: 11/16/19 07:29 11/16/19 07:29 Labs: Abnormal Lab Results - Last 24 Hours (Table) 11/16/19 11/16/19 Range/Units 07:29 07:29 WBC 13.2 H (3.8-10.6) k/uL Neutrophils # 9.7 H (1.3-7.7) k/uL Sodium 133 L (137-145) mmol/L Glucose 114 H (74-99) mg/dL Microbiology - Last 24 Hours (Table) 11/15/19 12:23 Blood Culture - Preliminary Blood No Growth after 24 hours 11/15/19 12:23 Urine Culture - Preliminary Urine,Voided Assessment and Plan Assessment: 1- patient presented to hospital with fever right flank pain in this patient recently diagnosed with urinary tract infection failing outpatient oral Keflex therapy however the patient urine culture done on November 10 did show an E. coli that was sensitive pathogen (1) Failure of outpatient treatment Current Visit: Yes Status: Acute Code(s): Z78.9 - OTHER SPECIFIED HEALTH STATUS SNOMED Code(s): 655196264 (2) Pyelonephritis Current Visit: Yes Status: Acute Code(s): N12 - TUBULO-INTERSTITIAL NE PHRITIS, NOT SPCF ACUTE OR CHRONIC SNOMED Code(s): 93859380 Plan: 1- we will adjust Rocephin to 2 g IV piggyback daily 2-gentle IV fluid We will follow on clinical condition and cultures to further adjust medication if needed Thank you for this consultation will follow this patient with you Time with Patient: Greater than 30
[2019-11-17] MEDS: HYDROcodone/APAP 5-325MG 1 EACH TAB PO PRN ×2 (00:45→06:40)
[2019-11-17 02:43] VITALS: PULSE 64
[2019-11-17] MEDS: NICOTINE 14MG/24HR PATCH TRANSDERM SCH (08:11)
[2019-11-17] MEDS: HEPARIN SODIUM,PORCINE 5,000 UNIT/ML 1 ML VIAL SQ SCH (08:11)
[2019-11-17 08:15] VITALS: BP 141/76; RESP 16; TEMP 97.9
[2019-11-17] MEDS: PANTOPRAZOLE 40 MG TABLET PO SCH (08:18)
[2019-11-17] MEDS: ACETAMINOPHEN TAB 500 MG TAB PO PRN (08:18)
[2019-11-17 10:39] LABS: Basophils # (A) 0.1 k/uL (0-0.2); Basophils % (A) 1 %; Eosinophils # (A) 0.2 k/uL (0-0.7); Eosinophils % (A) 2 %; HCT 42.3 % (34.0-46.0); HGB 13.1 gm/dL (11.4-16.0); Lymphocytes # (A) 3.4 k/uL (1.0-4.8); Lymphocytes % (A) 32 %; MCH 28.4 pg (25.0-35.0); MCHC 30.9 g/dL (31.0-37.0); MCV 91.9 fL (80.0-100.0); Mean Platelet Volume 6.6; Monocytes # (A) 0.4 k/uL (0-1.0); Monocytes % (A) 4 %; Neutrophils # (A) 6.3 k/uL (1.3-7.7); Neutrophils % (A) 60 %; Platelet Count 461 k/uL (150-450); RDW 12.3 % (11.5-15.5); WBC 10.5 k/uL (3.8-10.6)
[2019-11-17 10:58] LABS: African American GFR (CKD) >90 (>60 ml/min/1.73 sqM); Anion Gap 9 mmol/L; Blood Urea Nitrogen 17 mg/dL (7-17); Calcium 8.9 mg/dL (8.4-10.2); Carbon Dioxide 25 mmol/L (22-30); Chloride 103 mmol/L (98-107); Glucose 86 mg/dL (74-99); Non-African American GFR(CKD) >90 (>60 ml/min/1.73 sqM); Potassium 4.8 mmol/L (3.5-5.1); Sodium 137 mmol/L (137-145)
--- NOTE | 2019-11-17 13:11 | PN ---
PROGRESS NOTE DATE OF SERVICE: 11/17/2019 REASON FOR FOLLOWUP: E coli right-sided pyelonephritis. INTERVAL HISTORY: The patient is currently afebrile. The patient overall is feeling better. Breathing comfortably. The patient denies having any chest pain. No shortness of breath or cough. No nausea, no vomiting. No abdominal pain or diarrhea. PHYSICAL EXAMINATION: Blood pressure 141/76, pulse of 64, temperature 97.9. She is 97% on room air. General description is a middle-aged female, lying in bed in no distress. RESPIRATORY SYSTEM: Unlabored breathing, clear to auscultation anteriorly. HEART: S1, S2. Regular rate and rhythm. ABDOMEN: Soft, no tenderness. LABS: Hemoglobin 13.1, white count 10.5, BUN of 17, creatinine 0.75. DIAGNOSTIC IMPRESSION AND PLAN: Patient with E coli right-sided pyelonephritis. Blood and urine culture this admission have been negative. Previous blood culture were negative. Urine done on 11/11/2019 shows E coli that was sensitive pathogen. Recommend finish therapy with oral Cipro 500 mg twice a day for another 10-12 days and close outpatient followup. MMODL / IJN: [id number] /
--- NOTE | 2019-11-18 10:31 | DS ---
DISCHARGE SUMMARY DATE OF SERVICE: 11/17/2019 FINAL DIAGNOSES: 1. Possible E. coli. 2. Acute urinary tract infection with possible pyelonephritis, sepsis, present on admission with failure of outpatient treatment with negative cultures. 3. Increased WBC. 4. History of uterine ablation. 5. History of facial tumor removal. 6. Obesity with body mass index of 33.3. 7. Increased random blood sugar. 8. Hyponatremia, mild. DISCHARGE DISPOSITION: The patient will be discharged in a stable condition with guarded prognosis. HISTORY OF PRESENT ILLNESS: This is a 44-year-old woman with a past medical history of multiple medical problems consistent with possible acute pyelonephritis and mostly on the right side. The patient was given antibiotics and the patient improved significantly. On exam, vitals are stable. CARDIOVASCULAR: S1, S2. ABDOMEN: Soft. NERVOUS SYSTEM: No focal deficits. DISCHARGE ADVICE: 1. Diet is cardiac diet. 2. Activity limited until followup. 3. Follow up with Dr. Barnes in 2 to 3 days. MEDICATIONS: 1. Cipro 500 mg p.o. b.i.d. for 10 days. 2. Tylenol p.r.n. Dr. Olivier saw the patient while in the hospital. Once again, the patient will be discharged in a stable condition with guarded prognosis. MMODL / IJN: [id number] /
== END 2019-11-17 13:41 | disposition home or self-care (01) | DRG 690 ==
LOC: EC 11:46 → 1SOBS 13:48 → OBSVTOIN 11-16 12:42
PROVIDERS: ADMIT Hospitalist; ATTEND Hospitalist
DX: N12 Tubulo-interstitial nephritis, not specified as acute or chronic (principal); E87.1 Hypo-osmolality and hyponatremia; R10.31 Right lower quadrant pain; E66.9 Obesity, unspecified; K74.60 Unspecified cirrhosis of liver; N83.202 Unspecified ovarian cyst, left side; Z68.33 Body mass index [BMI] 33.0-33.9, adult
CPT/HCPCS: 36415; 74176; 80048; 80053; 81001; 82550; 83735; 84100; 85025; 87040; 87086; 96365; 96366; 96375; 99285

== ENCOUNTER 2022-03-15 20:35 | Emergency (ER) | payer OTHER ==
[2022-03-15 20:44] VITALS: RESP 16; TEMP 98
--- NOTE | 2022-03-15 21:06 | XR ---
EXAMINATION TYPE: XR knee complete LT DATE OF EXAM: 03/15/2022 CLINICAL HISTORY: Fall injury with pain TECHNIQUE: Three views of the left knee are obtained. COMPARISON: None. FINDINGS: There is no acute fracture/dislocation evident in left knee. Mild tricompartment joint spa ce loss. No significant spurring. The overlying soft tissue appears unremarkable. IMPRESSION: There is no acute fracture or dislocation in the left knee.
[2022-03-15] MEDS ORDERED: KETOROLAC 15 MG/ML 1 ML VIAL IM STA (21:28)
--- NOTE | 2022-03-15 21:30 | ED ---
Lower Extremity Injury HPI - General Chief Complaint: Extremity Injury, Lower Stated Complaint: knee pain,fall Time Seen by Provider: 03/15/22 21:17 Source: patient Mode of arrival: wheelchair Limitations: no limitations - History of Present Illness Initial Comments: Pleasant well-appearing 46-year-old female presents with left knee pain. States that she was outside slipped on snow and fell hyperextending her left knee. Has been using Motrin and Tylenol at home lung with ice with minimal relief. MD Complaint: knee injury (left) -: hour(s) (12) Injury: Knee: Left Type of Injury: hyperextension Place: home Severity scale (1-10): 5 Improves With: immobilization Worsens With: movement, palpation Context: other (slip and fall, hyperextended) - Related Data Previous Rx's Medication Instructions Recorded Acetaminophen Tab [Tylenol] 1,000 mg PO Q6HR PRN tab 11/17/19 Ciprofloxacin HCl [Cipro] 500 mg PO BID 1 Days #2 tab 11/17/19 Ibuprofen [Motrin] 600 mg PO Q8HR PRN #30 tab 03/15/22 Allergies Allergy/AdvReac Type Severity Reaction Status Date / Time No Known Allergies Allergy Verified 11/15/19 16:36 Review of Systems ROS Statement: Those systems with pertinent positive or pertinent negative responses have been documented in the HPI. ROS Other: All systems not noted in ROS Statement are negative. Past Medical History Past Medical History: No Reported History History of Any Multi-Drug Resistant Organisms: None Reported Past Surgical History: Uterine Ablation Additional Past Surgical History / Comment(s): facial tumor removed at age 12 Past Anesthesia/Blood Transfusion Reactions: No Reported Reaction Past Psychological History: No Psychological Hx Reported Smoking Status: Never smoker Past Alcohol Use History: Rare Past Drug Use History: None Reported General Exam Limitations: no limitations General appearance: alert, in no apparent distress Head exam: Present: atraumatic Eye exam: Present: normal appearance. Absent: scleral icterus, conjunctival injection Respiratory exam: Absent: respiratory distress, accessory muscle use Cardiovascular Exam: Present: regular rate Left Knee exam: Present: tenderness, swelling, pain/laxity with valgus, pain/laxity with varus, full knee extension. Absent: abrasion, laceration, ecchymosis, deformity, dislocation, erythema Lower Leg exam: Absent: tenderness, swelling Ankle exam: Absent: tenderness, swelling Neurovascular tendon exam: Present: no vascular compromise. Absent: abnormal cap refill, motor deficit, sensory deficit, tendon deficit, extremity cold to touch, pallor, foot drop, peroneal nerve deficit Neurological exam: Present: alert, oriented X3 Psychiatric exam: Present: normal affect, normal mood Skin exam: Present: warm, dry, normal color. Absent: cyanosis, diaphoretic, petechiae, pallor Course Vital Signs 03/15/22 03/15/22 20:41 22:17 Temperature 98 F Pulse Rate 92 88 Respiratory 16 16 Rate Blood Pressure 148/92 135/78 O2 Sat by Pulse 96 97 Oximetry Medical Decision Making - Medical Decision Making X-ray of the left knee interpreted by me shows no evidence of fracture or dislocation. Radiologist interpretation no acute fracture dislocation left knee. Mild tricompartment joint space loss. No significant spurring. Overlying soft tissue appears unremarkable. Neurovascularly intact. She was given a Toradol injection, knee immobilizer and crutches. Directed to follow up with orthopedics next week. Rest ice elevate Tylenol Motrin for pain. Return to the emergency room with any new or concerning symptoms. Patient is agreeable to this plan of care. Family at bedside. Case discussed with Dr. Medina Was pt. sent in by a medical professional or institution? @ -no Did you speak to anyone other than the patient for history? @ -no Did you review nursing and triage notes? @ -yes i agree Were old charts reviewed? @ -no Differential Diagnosis? @ -Fracture, knee dislocation, ligamentous injury, patellar dislocation EKG interpreted by me (3pts min.)? @ -[none] X-rays interpreted by me (1pt min.)? @ -Yes as above CT interpreted by me (1pt min.)? @ -[none] U/S interpreted by me (1pt. min.)? @ -[none] What testing was considered but not performed? (CT, X-rays, U/S, labs)? Why? @ None What meds were considered but not given? Why? @ -No Did you discuss the management of the patient with other professionals? @ no Did you reconcile home meds? @ -no Was smoking cessation discussed for >3mins.? @ -no Was critical care preformed (if so, how long)? @ -no Were there social determinants of health that impacted care today? How? (Homelessness, low income, unemployed, alcoholism, drug addiction, transportation, low edu. Level, literacy, decrease access to med. care, correction, rehab)? @ -none Was there de-escalation of care discussed even if they declined? (Discuss DNR or withdrawal of care, Hospice)? @ -no What co-morbidities impacted this encounter? (DM, HTN, Smoking, COPD, CAD, Cancer, CVA, Hep., AIDS, mental health diagnosis, sleep apnea, morbid obesity)? @ -none Was patient admitted / discharged? @ -discharged Undiagnosed new problem with uncertain prognosis? @ -[none] Drug Therapy requiring intensive monitoring for toxicity (Heparin, Nitro, Insulin, Cardizem)? @ -no Were any procedures done? @ -no Diagnosis/symptom? @ -Internal derangement left knee Acute, or Chronic, or Acute on Chronic? @ -Acute Uncomplicated (without systemic symptoms) or Complicated (systemic symptoms)? @ -[default] Side effects of treatment? @ -[none] Exacerbation, Progression, or Severe Exacerbation] @ -[no] Poses a threat to life or bodily function? @ -[no] Disposition Clinical Impression: Internal derangement of left knee Disposition: HOME SELF-CARE Condition: Good Instructions (If sedation given, give patient instructions): Knee Pain (ED) Additional Instructions: Rest, ice, elevate and wear knee immobilizer. Use crutches. Tylenol and or Motrin as needed for pain. Follow-up with orthopedics next week. Prescriptions: Ibuprofen [Motrin] 600 mg PO Q8HR PRN #30 tab PRN Reason: Pain Is patient prescribed a controlled substance at d/c from ED?: No Referrals: Za Barnes MD [Primary Care Provider] - 1-2 days Time of Disposition: 21:30
[2022-03-15 22:59] VITALS: BP 135/78; PULSE 88
== END 2022-03-15 22:17 | disposition home or self-care (01) ==
LOC: EC 20:35
DX: M23.92 Unspecified internal derangement of left knee (principal); W01.0XXA Fall on same level from slipping, tripping and stumbling without subsequent striking against object, initial encounter
CPT/HCPCS: 73562; 99283; 96372; L1830; J1885